=== PATIENT | male | born 1965 | race Caucasian/White ===

== ENCOUNTER 2017-08-06 18:55 | Emergency (ER) | payer SELFPAY ==
[~2017-08-06] VITALS: Ht 180.3 cm; Wt 80.0 kg
[~2017-08-06 18:55] MED LIST: ALBUAER3 INH; ASPI-183 PO; HYDR12.57 PO; LOVA20TA PO; [UNRECOGNIZED DRUG - CODE]
[2017-08-06 19:19] VITALS: BP 144/84; PULSE 87; RESP 22; TEMP 97.4; O2SAT 94
[2017-08-06 19:33] VITALS: O2SAT 97
--- NOTE | 2017-08-06 19:36 | PD ---
HPI Chief Complaint: Respiratory Symptoms Time Seen by Provider: 19:23 Travel History International Travel<30 days: No Contact w/Intl Traveler<30days: No Traveled to known affect area: No History of Present Illness HPI 52-year-old male with history of asthma presents by private vehicle for evaluation of wheezing, cough, dyspnea. Symptoms started 2 days ago. Symptoms are moderate, unrelieved with his at home albuterol inhaler/nebulizers, no obvious aggravating factors. He reports that the cough is primarily dry but occasionally productive with clear sputum. Denies fevers, chills, chest pain, abdominal pain, lower extremity edema, nausea or vomiting. His primary care physician is Dr. Obrien. No other complaints at this time. PFSH Past Medical History Asthma: Yes Diminished Hearing: No Tetanus Vaccination: < 5 Years Influenza Vaccination: No Past Surgical History Surgical History: No Previous Surgery Social History Alcohol Use: Yes Tobacco Use: Yes Substance Use: No Allergies-Medications (Allergen,Severity, Reaction): Coded Allergies: No Known Allergies (Unverified Adverse Reaction, Unknown, 08/06/17) Reported Meds & Prescriptions Reported Meds & Active Scripts Active Prednisone (21) 10 mg tab Dose Pack (Prednisone) 10 Mg Pack 10 Mg PO DIRECTED Proair Hfa 8.5 GM Inh (Albuterol Sulfate) 90 Mcg/Act Aer 1 Puff INH Q4H PRN 108 mcg/actuation Lovastatin 20 Mg Tab 20 Mg PO HS Hydrochlorothiazide 12.5 Mg Cap 12.5 Mg PO DAILY Reported Primatene Asthma 12.5-200 mg (Ephedrine-Guaifenesin) 1 Tab Tab 12.5 Mg .ROUTE BID Aspirin 325 Mg Tab 325 Mg PO DAILY Review of Systems Except as stated in HPI: all other systems reviewed are Neg Physical Exam Narrative GENERAL: Well-developed well-nourished male no acute distress. SKIN: Warm and dry. HEAD: Atraumatic. Normocephalic. EYES: Pupils equal and round. No scleral icterus. No injection or drainage. ENT: No nasal bleeding or discharge. Mucous membranes pink and moist. NECK: Trachea midline. No JVD. CARDIOVASCULAR: Regular rate and rhythm. No murmur appreciated. RESPIRATORY: No accessory muscle use. Oxygen saturation 94% on room air. There is diffuse inspiratory and expiratory wheezing bilaterally. GASTROINTESTINAL: Abdomen soft, non-tender, nondistended. Hepatic and splenic margins not palpable. MUSCULOSKELETAL: No obvious deformities. No clubbing. No cyanosis. No edema. NEUROLOGICAL: Awake and alert. No obvious cranial nerve deficits. Motor grossly within normal limits. Normal speech. Data Data Last Documented VS Vital Signs Date Time Temp Pulse Resp B/P (MAP) Pulse Ox O2 Delivery O2 Flow Rate FiO2 08/06/17 20:53 78 18 145/89 (107) 96 Room Air 08/06/17 19:44 2.00 08/06/17 19:19 97.4 Orders Orders Basic Metabolic Panel (Bmp) (08/06/17 19:32) Complete Blood Count With Diff (08/06/17 19:32) Chest, Pa & Lat (08/06/17 19:32) Ecg Monitoring (08/06/17 19:32) Iv Access Insert/Monitor (08/06/17 19:32) Oximetry (08/06/17 19:32) Oxygen Administration (08/06/17 19:32) Methylprednisolone So Succ Inj (Solumedr (08/06/17 19:45) Albuterol-Ipratropium Neb (Duoneb Neb) (08/06/17 19:45) Sodium Chloride 0.9% Flush (Ns Flush) (08/06/17 19:45) Labs Laboratory Tests Test 08/06/17 19:40 White Blood Count 8.0 TH/MM3 Red Blood Count 5.39 MIL/MM3 Hemoglobin 17.8 GM/DL Hematocrit 50.5 % Mean Corpuscular Volume 93.7 FL Mean Corpuscular Hemoglobin 33.1 PG Mean Corpuscular Hemoglobin Concent 35.3 % Red Cell Distribution Width 13.5 % Platelet Count 275 TH/MM3 Mean Platelet Volume 7.8 FL Neutrophils (%) (Auto) 44.8 % Lymphocytes (%) (Auto) 33.0 % Monocytes (%) (Auto) 10.9 % Eosinophils (%) (Auto) 9.9 % Basophils (%) (Auto) 1.4 % Neutrophils # (Auto) 3.6 TH/MM3 Lymphocytes # (Auto) 2.6 TH/MM3 Monocytes # (Auto) 0.9 TH/MM3 Eosinophils # (Auto) 0.8 TH/MM3 Basophils # (Auto) 0.1 TH/MM3 CBC Comment DIFF FINAL Differential Comment Blood Urea Nitrogen 12 MG/DL Creatinine 0.72 MG/DL Random Glucose 89 MG/DL Calcium Level 9.5 MG/DL Sodium Level 134 MEQ/L Potassium Level 4.4 MEQ/L Chloride Level 98 MEQ/L Carbon Dioxide Level 26.0 MEQ/L Anion Gap 10 MEQ/L Estimat Glomerular Filtration Rate 114 ML/MIN [facility] Medical Decision Making Medical Screen Exam Complete: Yes Emergency Medical Condition: Yes Medical Record Reviewed: Yes Differential Diagnosis Asthma exacerbation, COPD, pneumonia, reactive airway disease, pulmonary edema, pulmonary embolism Narrative Course The patient was placed on ECG monitoring pulse oximetry. Lab work, chest x-ray , DuoNeb, Solu-Medrol treatment have been ordered. CBC is unremarkable. BMP is unremarkable. Chest x-ray reveals no acute abnormalities. Upon reexamination the patient feels significantly improved. At this point time the plan would be to discharge him with a prednisone taper for asthma exacerbation treatment. Diagnosis Primary Impression: Asthma exacerbation Additional Instructions: Medication as prescribed. Albuterol inhaler as needed for severe wheezing. Return for any emergent medical conditions. Med/Other Pt SpecificInfo: Prescription(s) given Scripts Prednisone (21) 10 mg tab Dose Pack (Prednisone (21) 10 mg tab Dose Pack) 10 Mg Pack 10 MG PO DIRECTED for Inflammation, #1 DSPK 0 Refills Prov: Dewayne Elder MD 08/06/17 Disposition: 01 DISCHARGE HOME Condition: Stable Acosta Bowser Aug 06, 2017 19:36
[2017-08-06 19:44] VITALS: O2SAT 100
[2017-08-06] MEDS ORDERED: SODIUM CHLORIDE 0.9% FLUSH 10 ML FLUSH IVF PRN (19:45)
[2017-08-06] MEDS ORDERED: methylPREDNISolone SOD SUCC 125 MG/2 ML VIAL IV PUSH ONE (19:45)
[2017-08-06] MEDS: RESP: ALBUTEROL 2.5 MG/IPRATROPIUM 0.5 MG NEB (SCH) INH ×2 (19:51→19:52)
[2017-08-06 20:04] LABS: AUTOMATED NEUTROPHIL # 3.6 TH/MM3 (1.8-7.7); BASOPHIL # 0.1 TH/MM3 (0-0.2); BASOPHIL % 1.4 % (0.0-2.0); EOSINOPHIL # 0.8 TH/MM3 (0-0.4); EOSINOPHIL % 9.9 % (0.0-4.0); HEMATOCRIT 50.5 % (39.0-51.0); HEMOGLOBIN 17.8 GM/DL (13.0-17.0); LYMPHOCYTE # 2.6 TH/MM3 (1.0-4.8); MEAN CELL VOLUME 93.7 FL (80.0-100.0); MEAN CORPUSCULAR HEMOGLOBIN 33.1 PG (27.0-34.0); MEAN CORPUSCULAR HGB CONC 35.3 % (32.0-36.0); MEAN PLATELET VOLUME 7.8 FL (7.0-11.0); MONO % 10.9 % (0.0-8.0); MONOCYTE # 0.9 TH/MM3 (0-0.9); NEUT % 44.8 % (16.0-70.0); PLATELET COUNT 275 TH/MM3 (150-450); RED BLOOD COUNT 5.39 MIL/MM3 (4.50-5.90); RED CELL DISTRIBUTION WIDTH 13.5 % (11.6-17.2)
[2017-08-06] MEDS ORDERED: PRED10PA PO (20:21)
[2017-08-06 20:38] LABS: CALCIUM 9.5 MG/DL (8.5-10.1); CREATININE 0.72 MG/DL (0.60-1.30)
[2017-08-06 20:53] VITALS: BP 145/89; PULSE 78; RESP 18; O2SAT 96
--- NOTE | 2017-08-06 21:11 | RADRPT ---
EXAM DATE: 08/06/2017 9:06 PM EDT AGE/SEX: 52 years / Male INDICATIONS: Shortness of breath. CLINICAL DATA: This is the patient's initial encounter. Patient reports that signs and symptoms have been present for 1 day and indicates a pain score of 0/10. MEDICAL/SURGICAL HISTORY: Asthma. None. COMPARISON: No prior exams available for comparison. FINDINGS: PA and lateral views of the chest demonstrate the lungs to be symmetrically aerated without evidence of mass, infiltrate or effusion. The cardiomediastinal contours are unremarkable. Osseous structures are intact. CONCLUSION: No acute findings. There are suspected mild bullous changes at the lung apices. Electronically signed by: Giovanni Sim MD 08/06/2017 9:09 PM EDT
== END 2017-08-06 21:37 | disposition home or self-care (01) ==
LOC: NEPD 18:55
DX: J45.901 Unspecified asthma with (acute) exacerbation (principal); Z72.0 Tobacco use
CPT/HCPCS: 71046; 80048; 85025; 94640; 94664; 96374; 99284; J2930